=== PATIENT | female | born 1975 | race African-American/Black ===

== ENCOUNTER 2018-05-25 11:27 | Observation (INO) | payer BC ==
[~2018-05-25] VITALS: Ht 167.6 cm; Wt 97.5 kg
[2018-05-25] MEDS ORDERED: SODIUM CHLORIDE 0.9% 1000ML 1,000 ML IV STA (13:05)
[2018-05-25] MEDS ORDERED: ONDANSETRON HCL INJ 2 MG/ML VIAL IV STA (13:05)
[2018-05-25] MEDS ORDERED: DONNATAL/LIDOCAINE/MAALOX 30 ML SUSP PO SCH (13:15)
[2018-05-25] MEDS ORDERED: MORPHINE SULFATE 5 MG/ML VIAL IV ONE (13:15)
--- NOTE | 2018-05-25 14:22 | Diagnostic Imaging Report ---
EXAM: CT Abdomen and Pelvis WITH contrast INDICATION: Epigastric pain for one day COMPARISON: None. TECHNIQUE: Abdomen and pelvis were scanned utilizing a multidetector helical scanner from the lung base to the pubic symphysis after administration of IV contrast. Coronal and sagittal reformations were obtained. Routine protocol was performed. Scan was performed when during portal venous phase. IV CONTRAST: 100 mL of Isovue-370 ORAL CONTRAST: None RADIATION DOSE: Total DLP: 792.6 mGy*cm Estimated effective dose: (DLP x 0.015 x size factor) mSv COMPLICATIONS: None FINDINGS: LINES and TUBES: None. LOWER THORAX: Unremarkable HEPATOBILIARY: No focal hepatic lesions. No biliary ductal dilation. GALLBLADDER: Tiny hyperdensities in the gallbladder suggestive of tiny stones. Mild wall thickening surrounding the gallbladder. No fluid collections. SPLEEN: No splenomegaly. PANCREAS: No focal masses or ductal dilatation. ADRENALS: No adrenal nodules KIDNEYS/URETERS: Kidneys enhance symmetrically. No hydronephrosis. No cystic or solid mass lesions. No stones. GI TRACT: No abnormal distention, wall thickening, or evidence of bowel obstruction. Appendix is normal. PELVIC ORGANS/BLADDER: Unremarkable. LYMPH NODES: No lymphadenopathy. VESSELS: Unremarkable. Incidental accessory right renal artery. PERITONEUM / RETROPERITONEUM: No free air or fluid. BONES: Unremarkable. SOFT TISSUES: Unremarkable. IMPRESSION: Cholelithiasis with mild gallbladder wall thickening may represent acute cholecystitis. Recommend further evaluation with right upper quadrant ultrasound. Signed by: Dr. Brenda Ortega M.D. on 05/25/2018 2:18 PM
[2018-05-25] MEDS ORDERED: MORPHINE SULFATE 2 MG/ML SYR IV PRN (15:00)
[2018-05-25] MEDS ORDERED: LEVOFLOXACIN 500MG/D5W 100ML IV SCH (15:00)
[2018-05-25] MEDS ORDERED: PROMETHAZINE HCL (IM) 25 MG/ML VIAL IV PRN (15:00)
[2018-05-25] MEDS ORDERED: FENTANYL CITRATE/PF 100MCG/2 ML INJ IV ONE (15:15)
--- OUTSIDE RECORDS SUMMARY | 2018-05-25 15:21 | XMS REPORT ---
[facility] Address Unknown Phone Unavailable Care Team Providers Care Computer System Validation Specialist Name Role Phone Gabriela NGUYEN Unavailable Unavailable Problems This patient has no known problems. Allergies, Adverse Reactions, Alerts This patient has no known allergies or adverse reactions. Medications This patient has no known medications. Results Test Description Test Time Test Comments Text Results Atomic Results Result Comments CT ABD/PEL WITH CONTRAST-HOPD 2018-05-25 14:01:00 [facility] [address] [address] Patient Name: MARY BRENNER MR #: [id number] : 1975 Age/Sex: 43/F Req #: [id number] Adm Physician: Ordered by: LUCITA NGUYEN MD Report #: [id number] Location: [facility] Room/Bed: Procedure: [id number] HOPD/CT ABD/PEL WITH CONTRAST-HOPD Exam Date: 05/25/18 Exam Time: 1410 REPORT STATUS: Signed EXAM: CT Abdomen and Pelvis WITH contrast INDICATION: Epigastric pain for one day COMPARISON: None. TECHNIQUE: Abdomen and pelvis were scanned utilizing a multidetector helical scanner from the lung base to the pubic symphysis after administration of IV contrast. Coronal and sagittal reformations were obtained. Routine protocol was performed. Scan was performed when during portal venous phase. IV CONTRAST: 100 mL of Isovue-370 ORAL CONTRAST: None RADIATION DOSE: Total DLP: 792.6 mGy*cm Estimated effective dose: (DLP x 0.015 x size factor) mSv COMPLICATIONS: None FINDINGS: LINES and TUBES: None. LOWER THORAX: Unremarkable HEPATOBILIARY: No focal hepatic lesions. No biliary ductal dilation. GALLBLADDER: T iny hyperdensities in the gallbladder suggestive of tiny stones. Mild wall thickening surrounding the gallbladder. No fluid collections. SPLEEN: No splenomegaly. PANCREAS: No focal masses or ductal dilatation. ADRENALS: No adrenal nodules KIDNEYS/URETERS: Kidneys enhance symmetrically. No hydronephrosis. No cystic or solid mass lesions. No stones. GI TRACT: No abnormal distention, wall thickening, or evidence of bowel obstruction. Appendix is normal. PELVIC ORGANS/BLADDER: Unremarkable. LYMPH NODES: No lymphadenopathy. VESSELS: Unremarkable. Incidental accessory right renal artery. PERITONEUM / RETROPERITONEUM: No free air or fluid. BONES: Unremarkable. SOFT TISSUES: Unremarkable. IMPRESSION: Cholelithiasis with mild gallbladder wall thickening may represent acute cholecystitis. Recommend further evaluation with right upper quadrant ultrasound. Signed by: Dr. Ashly Ortega M.D. on 05/25/2018 2:18 PM Dictated By: ASHLY ORTEGA MD [id number] Transcribed By: ANDRE on 05/25/181417 COPY TO: LUCITA NGUYEN MD
[2018-05-25] MEDS: LEVOFLOXACIN 500MG/D5W 100ML 100 ML IV SCH (16:00)
[2018-05-25] MEDS: SODIUM CHLORIDE 0.9% 1000ML 1,000 ML IV SCH (17:05)
[2018-05-25] MEDS: ONDANSETRON HCL INJ 2 MG/ML VIAL IV PRN (19:54)
[2018-05-25] MEDS: MORPHINE SULFATE INJ 4 MG/ML INJ IV PRN (19:55)
[2018-05-25 20:00] VITALS: BP 136/68
[2018-05-25 20:14] VITALS: BP 148/78
[2018-05-25] MEDS: PIPER-TAZ 3.375 GM / NS 50ML IV SCH (22:20)
[2018-05-26] VITALS (7 sets, daily range): BP systolic 101–126; BP diastolic 55–71
[2018-05-26] MEDS: SODIUM CHLORIDE 0.9% 1000ML 1,000 ML IV SCH ×2 (00:33→06:27)
[2018-05-26] MEDS: ONDANSETRON HCL INJ 2 MG/ML VIAL IV PRN (02:20)
[2018-05-26] MEDS: MORPHINE SULFATE INJ 4 MG/ML INJ IV PRN ×2 (02:20→09:30)
[2018-05-26] MEDS: PIPER-TAZ 3.375 GM / NS 50ML IV SCH ×3 (05:49→23:05)
[2018-05-26] MEDS: LEVOFLOXACIN 500MG/D5W 100ML 100 ML IV SCH (15:00)
[2018-05-26] MEDS ORDERED: BUPIVACAINE 0.25%/EPI 30ML SDV INJ ONE (15:11)
[2018-05-26] MEDS ORDERED: FENTANYL CITRATE/PF 100MCG/2 ML INJ ONE ×2 (15:59→17:29)
[2018-05-26] MEDS ORDERED: MIDAZOLAM HCL 2 MG/2 ML VIAL ONE (15:59)
[2018-05-26] MEDS ORDERED: HYDROMORPHONE 1MG/1ML INJ IV PRN (17:00)
[2018-05-26] MEDS ORDERED: HYDROMORPHONE 2MG/ML 2 MG/ML ML IV PRN (17:15)
--- NOTE | 2018-05-26 17:17 | Operative Report ---
DATE OF PROCEDURE: May 26, 2018 PREOPERATIVE DIAGNOSIS: Cholecystitis and cholelithiasis. POSTOPERATIVE DIAGNOSIS: Cholecystitis and cholelithiasis. OPERATION PERFORMED: Laparoscopic cholecystectomy. CONFECTIONERY MAKER: Dr. Andrea Putnam. ANESTHESIA: General endotracheal. COMPLICATIONS: None. ESTIMATED BLOOD LOSS: Minimal. DESCRIPTION OF PROCEDURE: With the patient lying in bed in the supine position under good general endotracheal anesthesia, the abdomen was prepped with Betadine solution and draped in the usual manner. A Veress needle was introduced into the umbilicus, and pneumoperitoneum was established without any difficulty. An 11 mm trocar was placed into the umbilicus, and a 10 mm video laparoscope was placed into the intraabdominal cavity. Under direct vision, three 5 mm trocars were placed in the right subcostal region. Video laparoscopy at this point revealed a thick-walled, inflamed gallbladder that was full of stones. The rest of the abdominal exploration was otherwise within normal limits. The peritoneum overlying the neck of the gallbladder was then opened, and the cystic duct was identified. The cystic duct was then followed to the junction with the common duct. There was a stone impacted at the mid level of the cystic duct. The common duct appeared to be of normal caliber. The cystic duct was then circumferentially dissected away from the common duct, doubly clipped and divided. The cystic artery was similarly doubly clipped and divided. The gallbladder was then slowly and carefully taken off of the liver bed. The gallbladder wall was rather thickened and fibrotic and edematous, showing all the signs of acute and chronic cholecystitis. Gallbladder was totally taken off of the liver bed and placed in a pouch and removed through the umbilicus. Video laparoscopy was then again carried out. The liver bed was found to be perfectly dry. All of the excess fluid was aspirated. The pneumoperitoneum was evacuated, and all the trocars were removed under direct vision. The midline fascia at the umbilicus was then closed with a [id number] of 0 Vicryl. All layers were infiltrated on the way out with solution of 1/4 percent Marcaine. Subcutaneous tissue was approximated with 3-0 Vicryl, and the skin was closed with subcuticular 5-0 Vicryl. Benzoin, Steri-Strips and Band-Aids were applied. The sponge, lap and needle count was correct. The patient tolerated the procedure well and returned to the recovery room in stable condition. Job#: [id number]
[2018-05-26] MEDS ORDERED: PANTOPRAZOLE 40 MG 10ML VIAL IV SCH (18:00)
[2018-05-26] MEDS: DEXTROSE 5%/LACTATED RINGERS 1,000 ML IV SCH (18:10)
[2018-05-27] VITALS: BP 108/71
[2018-05-27] MEDS: HYDROCODONE/APAP 7.5MG-325MG 1 EA TAB PO PRN ×2 (01:12→09:30)
[2018-05-27] MEDS: DEXTROSE 5%/LACTATED RINGERS 1,000 ML IV SCH (02:35)
[2018-05-27 04:00] VITALS: BP 118/57
[2018-05-27 06:15] LABS: BASOPHILS % 0.2 % (0.0-1.0); EOSINOPHILS % 0.1 % (0.0-6.0); HEMATOCRIT 36.7 % (34.2-44.1); HEMOGLOBIN 12.3 g/dL (12.0-16.0); LYMPHOCYTES # (AUTO) 1.5 (1.0-3.2); LYMPHOCYTES % 11.5 % (18.0-39.1); MEAN CORPUSCULAR HEMOGLOBIN 30.9 pg (28-32); MEAN CORPUSCULAR HGB CONC 33.5 g/dL (31-35); MEAN CORPUSCULAR VOLUME 92.2 fL (81-99); MONOCYTES # (AUTO) 0.8 (0.2-0.8); MONOCYTES % 6.3 % (4.4-11.3); NEUTROPHILS # (AUTO) 10.2 (2.1-6.9); NEUTROPHILS % 81.5 % (38.7-80.0); PLATELET COUNT 276 x10e3/uL (140-360); RED BLOOD COUNT 3.98 x10e6/uL (3.6-5.1); RED CELL DISTRIBUTION WIDTH 12.9 % (11.7-14.4)
[2018-05-27] MEDS: PIPER-TAZ 3.375 GM / NS 50ML IV SCH ×2 (06:21→14:50)
[2018-05-27 06:42] LABS: ALANINE AMINOTRANSFERASE 34 IU/L (0-55); ALBUMIN 2.7 g/dL (3.5-5.0); ALBUMIN/GLOBULIN RATIO 0.8 (0.8-2.0); ALKALINE PHOSPHATASE 50 IU/L (40-150); ANION GAP 9.9 mmol/L (8-16); BLOOD UREA NITROGEN < 5 mg/dL (7-26); CALCIUM 8.6 mg/dL (8.4-10.2); CARBON DIOXIDE 24 mmol/L (22-29); CHLORIDE 107 mmol/L (98-107); EST GLOMERULAR FILTRATION RATE > 60 ML/MIN (60-); GLUCOSE 157 mg/dL (74-118); POTASSIUM 3.9 mmol/L (3.5-5.1); SODIUM 137 mmol/L (136-145)
[2018-05-27 06:43] LABS: BUN/CREATININE RATIO 7 (6-25)
[2018-05-27 08:13] VITALS: BP 118/68
[2018-05-27 09:30] VITALS: BP 118/68
[2018-05-27] MEDS ORDERED: ACETAMINOPHEN 1000 MG/100 ML IV ONE (11:26)
[2018-05-27] MEDS ORDERED: ESMOLOL HCL 100MG/10ML 10 MG/ML VIAL ONE (11:26)
[2018-05-27] MEDS ORDERED: DEXAMETHASONE SOD PHOS INJ 4 MG/ML VIAL ONE (11:26)
[2018-05-27] MEDS ORDERED: PROPOFOL IV EMULSION 10 MG/ML 20 ML VIAL ONE (11:26)
[2018-05-27] MEDS ORDERED: ONDANSETRON HCL INJ 2 MG/ML VIAL ONE (11:26)
[2018-05-27] MEDS ORDERED: NEOSTIGMINE 5 MG/5ML SYR ONE (11:26)
[2018-05-27] MEDS ORDERED: LIDOCAINE HCL 2% LOCAL INJ 5 ML SDV VIAL INJ ONE (11:26)
[2018-05-27] MEDS ORDERED: ROCURONIUM BROMIDE 10 MG/ML 5ML VIAL ONE (11:26)
[2018-05-27] MEDS ORDERED: SEVOFLURANE INHAL SOLN 250 ML PEN BTL ONE (11:26)
[2018-05-27] MEDS ORDERED: GLYCOPYRROLATE INJ 1MG/ 5 ML SYR ONE (11:26)
[2018-05-27 17:04] VITALS: BP 118/73
[2018-05-27] MEDS ORDERED: TYLENOL WITH C1 EACH PO (17:10)
[2018-05-27] MEDS ORDERED: LEVAQUIN500 MG PO (17:10)
== END 2018-05-27 17:30 | disposition home or self-care (01) ==
LOC: FSED 11:27 → ERHOLD 14:56 → MED/SURG 18:01
PROVIDERS: ADMIT Surgery; ATTEND Surgery
DX: K80.00 Calculus of gallbladder with acute cholecystitis without obstruction (principal); Z01.810 Encounter for preprocedural cardiovascular examination; Z01.812 Encounter for preprocedural laboratory examination
CPT/HCPCS: 36415; 47562; 74177; 80053 ×2; 81003; 81025; 85025 ×2; 85379; 88304; 93005; 96367; 99284; C1766; G0378 ×3; J0131; J1100; J1170; J1956 ×2; J2001; J2250; J2270 ×3; J2405 ×3; J2543 ×3; J2550; J2704; J3490; J7030 ×2; J7121 ×2; 96365